=== PATIENT | female | born 1930 | race Caucasian/White ===

== ENCOUNTER → 2021-09-06 | Outpatient (CLI) | payer MEDICARE ==
--- NOTE | 2021-09-06 13:20 | XR ---
EXAMINATION TYPE: XR skull complete DATE OF EXAM: 09/06/2021 COMPARISON: NONE HISTORY: Large lump right posterior head x2 months TECHNIQUE: 4 views submitted FINDINGS: Osseous structures intact. No destructive change or acute fracture. However within the post erior right parietal soft tissues there is a soft tissue mass. IMPRESSION: Soft tissue mass posterior right parietal soft tissues with no evidence of osseous destru ction. Correlate for underlying soft tissue neoplasm.
== END | disposition home or self-care (01) ==
LOC: RADXRMAIN 12:44
PROVIDERS: ATTEND Dermatology
DX: R22.0 Localized swelling, mass and lump, head (principal)
CPT/HCPCS: 70260